=== PATIENT | male | born 1980 | race Caucasian/White ===

== ENCOUNTER → 2019-05-23 | Outpatient (REF) | payer OTHER | LOC: M SMT 13:18 | PROVIDERS: ATTEND Urology | DX: Z30.2 Encounter for sterilization (principal) ==

== ENCOUNTER 2021-01-04 15:02 | Emergency (ER) | payer OTHER ==
[~2021-01-04] VITALS: Ht 175.3 cm; Wt 129.6 kg
[2021-01-04] MEDS ORDERED: AMLO1TAB24 (15:17)
[2021-01-04] MEDS ORDERED: LOSA50TA88 (15:17)
[2021-01-04] MEDS ORDERED: NS 1,000 ML IV ONE (15:20)
[2021-01-04] MEDS ORDERED: LABETALOL 100MG/20ML VIAL IV STA (15:24)
[2021-01-04] MEDS ORDERED: ONDANSETRON 4MG/2ML VIAL IV ONE (15:25)
[2021-01-04] MEDS ORDERED: MORPHINE 4 MG/ML 1ML VIAL/SYRINGE (J2270) IV ONE (15:25)
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
[2021-01-04 15:44] VITALS: BP 187/104
[2021-01-04 15:49] LABS: HEMATOCRIT 45.4 % (42.0-52.0); HEMOGLOBIN 15.9 g/dl (13.5-17.5); MEAN CORPUSCULAR HEMOGLOBIN 30.4 pg (27.0-33.0); MEAN CORPUSCULAR VOLUME 86.8 fl (80.0-96.0); PLATELET COUNT, AUTOMATED 239 10^3/uL (150-450); RED BLOOD COUNT 5.23 10^6/uL (4.30-6.10)
[2021-01-04 16:03] LABS: INR 0.96
[2021-01-04 16:06] LABS: BLOOD UREA NITROGEN 16 MG/DL (7-18); CALCIUM LEVEL 9.9 MG/DL (8.5-10.1); CARBON DIOXIDE LEVEL 25 MEQ/L (21-32); CHLORIDE LEVEL 107 MEQ/L (98-107); CREATININE FOR GFR 1.02 MG/DL (0.70-1.30); GLOMERULAR FILTRATION RATE > 60.0 (>60); GLUCOSE, FASTING 292 MG/DL (70-100); POTASSIUM SERUM 3.6 MEQ/L (3.5-5.1); SODIUM LEVEL 142 MEQ/L (136-145)
[2021-01-04 16:09] LABS: CPK CREATINE PHOSPHOKINASE 117 U/L (39-308)
[2021-01-04 16:10] LABS: CK-MB VALUE MASS 1.9 NG/ML (<3.6); MB/CK RELATIVE INDEX 1.62 (< OR =4); TROPONIN I < 0.02 NG/ML (< 0.10)
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
[2021-01-04] MEDS ORDERED: ISOVUE-370 76% 100ML VIAL As Ordered ONE (16:13)
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
[2021-01-04 17:45] VITALS: BP 167/101
[2021-01-04] MEDS ORDERED: BACITRACIN OINTMENT 30GM TUBE TOP ONE (18:00)
[2021-01-04] MEDS ORDERED: HYDR-3713 PO (18:02)
[2021-01-04] MEDS ORDERED: NORCO, ANEXSIA 5/325MG TABLET (HYDROcodone/ACETAMINOPHEN) PO ONE (18:05)
--- NOTE | 2021-01-04 21:39 | ECGEPIP ---
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
== END 2021-01-04 19:02 | disposition home or self-care (01) ==
LOC: M ED 15:02 → EDBD 15:02 → M ED 19:02
DX: Z04.1 Encounter for examination and observation following transport accident (principal); T14.8XXA Other injury of unspecified body region, initial encounter; V49.49XA Driver injured in collision with other motor vehicles in traffic accident, initial encounter; Y92.410 Unspecified street and highway as the place of occurrence of the external cause; I10 Essential (primary) hypertension; Z79.899 Other long term (current) drug therapy
CPT/HCPCS: 70450; 71045; 71260; 72125; 73130; 73590; 74177; 80048; 82550; 82553; 84484; 85027; 85610; 86850; 86900; 86901; 93005; 96361; 96374; 96375; 99284; J2270; J2405; Q9967

== ENCOUNTER 2021-02-03 12:10 | Emergency (ER) | payer OTHER ==
[~2021-02-03] VITALS: Ht 175.3 cm; Wt 125.5 kg
[~2021-02-03 12:10] MED LIST: AMLO1TAB24; HYDR-3713 PO; LOSA50TA88
[2021-02-03] MEDS ORDERED: TRAM50TA2 PO (12:29)
--- NOTE | 2021-02-03 14:19 | REP ---
INDICATION: left calf pain. COMPARISON: None. TECHNIQUE: Left {lower extremity duplex venous scanning is performed from the groin to the ankle level. FINDINGS: The deep veins are anechoic and fully compressible from the groin to the popliteal fossa in the left lower extremity. Color flow imaging is homogeneous. Spectral Doppler interrogation demonstrates intact respiratory variation in flow and normal manual augmentation of flow. There is no evidence of deep vein thrombosis above the knee. There is no evidence of DVT in the visualized calf veins of the left lower extremity.. Doppler interrogation of the contralateral common femoral vein shows normal symmetric respiratory phasicity. IMPRESSION: No evidence of DVT in the left lower extremity femoropopliteal veins. No DVT in the visible portions of the calf veins. <Electronically signed by Alvaro Sandoval > 02/03/21 [id number]
[2021-02-03 15:00] VITALS: BP 180/118
[2021-02-03] MEDS ORDERED: AMLO10TA PO (15:23)
== END 2021-02-03 15:35 | disposition home or self-care (01) ==
LOC: M ED 12:10
DX: L08.9 Local infection of the skin and subcutaneous tissue, unspecified (principal); S80.812A Abrasion, left lower leg, initial encounter; X58.XXXA Exposure to other specified factors, initial encounter; Y92.89 Other specified places as the place of occurrence of the external cause; I10 Essential (primary) hypertension; Z79.899 Other long term (current) drug therapy